=== PATIENT | female | born 1990 | race Caucasian/White ===

== ENCOUNTER 2019-09-05 23:22 | Inpatient (IN) | payer OTHER ==
[~2019-09-05] VITALS: Ht 160 cm; Wt 70.5 kg
[2019-09-05] MEDS: PLEASE ENTER ALLERGIES MC SCH (07:45)
[2019-09-05] MEDS ORDERED: NEWBORN KIT ONE (23:26)
[2019-09-05] MEDS ORDERED: MISOPROSTOL 200 MCG TABLET ONE (23:26)
[2019-09-05] MEDS ORDERED: LIDOCAINE 1%, 20ML ONE (23:26)
[2019-09-05] MEDS ORDERED: OXYTOCIN 30U/ 0.9% NaCL 500ML 0 ML ONE (23:27)
[2019-09-05] MEDS ORDERED: LACTATED RINGERS 1,000 ML IV SCH (23:28)
[2019-09-05] MEDS ORDERED: D5%-LACTATED RINGERS 1,000 ML IV SCH (23:28)
[2019-09-05] MEDS ORDERED: OXYTOCIN 30U/ 0.9% NaCL 500ML 500 ML IV ONE (23:28)
[2019-09-05] MEDS ORDERED: FENTANYL PF 100 MCG/2ML IV PRN (23:30)
[2019-09-05] MEDS ORDERED: TERBUTALINE 1 MG/ML, 1ML IVPush PRN (23:30)
[2019-09-05] MEDS ORDERED: TERBUTALINE 1 MG/ML, 1ML SQ PRN (23:30)
[2019-09-05] MEDS ORDERED: CALCIUM CARBONATE 500 MG TAB.CHEW PO PRN (23:30)
[2019-09-05] MEDS ORDERED: FENTANYL PF 100 MCG/2ML IVPush PRN (23:30)
[2019-09-05] MEDS ORDERED: ONDANSETRON 2MG/ML, 2ML IVPush PRN (23:30)
[2019-09-05] MEDS ORDERED: OXYTOCIN 10 UNITS/ML, 1ML ONE (23:32)
[2019-09-06] MEDS ORDERED: OXYTOCIN 30U/ 0.9% NaCL 500ML 500 ML IV SCH (00:05)
[2019-09-06] MEDS ORDERED: OXYcodone/APAP 5/325MG TABLET PO PRN ×2 (00:30)
[2019-09-06] MEDS ORDERED: ACETAMINOPHEN 325 MG TABLET PO PRN (00:30)
[2019-09-06] MEDS ORDERED: MISOPROSTOL 200 MCG TABLET PR PRN (00:30)
[2019-09-06] MEDS ORDERED: SIMETHICONE 80 MG CHEW TAB PO PRN (00:30)
[2019-09-06] MEDS ORDERED: CARBOPROST TROMETHAMINE 250 MCG/ML, 1ML IM PRN (00:30)
[2019-09-06] MEDS ORDERED: DIPH,PERTUSS(ACELL),TET VAC/PF NC IM-VACC PRN (00:30)
[2019-09-06] MEDS ORDERED: METHYLERGONOVINE 0.2 MG/ML IM PRN (00:30)
[2019-09-06 01:11] LABS: MEAN CORPUSCULAR HEMOGLOBIN 29.6 pg (27.0-34.8); MEAN CORPUSCULAR HGB CONC 33.7 g/dL (32.4-35.8); MEAN PLATELET VOLUME 9.3 fL (7.4-10.4); PLATELET COUNT 281 x10^3/uL (130-400); RED BLOOD COUNT 4.46 x10^6/uL (3.82-5.3); RED CELL DISTRIBUTION WIDTH 14.2 % (9.6-15.2)
[2019-09-06] MEDS ORDERED: IBUPROFEN 600 MG TABLET ONE (01:18)
[2019-09-06] MEDS: IBUPROFEN 600 MG TABLET PO PRN ×3 (01:21→18:04)
[2019-09-06 01:23] LABS: BASOPHILS # (AUTO) 0.01 x10^3/uL (0-0.1); BASOPHILS % (AUTO) 0 % (0-1); EOSINOPHILS % (AUTO) 0 % (1-7); LYMPHOCYTES # (AUTO) 0.75 x10^3/uL (1-3.4); LYMPHOCYTES % (AUTO) 4 % (22-44); MD SCAN; MONOCYTES # (AUTO) 0.43 x10^3/uL (0.2-0.8); MONOCYTES % (AUTO) 2 % (2-9); NEUTROPHILS # (AUTO) 18.91 x10^3/uL (1.8-6.8); NEUTROPHILS % (AUTO) 94 % (42-75)
[2019-09-06 02:45] VITALS: BP 116/73
[2019-09-06 05:30] VITALS: BP 108/63
[2019-09-06 07:30] VITALS: BP 101/61
[2019-09-06] MEDS: PLEASE ENTER ALLERGIES MC SCH ×3 (07:45→23:45)
[2019-09-06] MEDS: PRENATAL VIT/IRON/FA 1 EACH TABLET PO SCH (08:17)
[2019-09-06] MEDS: DOCUSATE 100 MG CAPSULE PO PRN ×2 (08:17→20:46)
[2019-09-06 08:54] LABS: MEAN CORPUSCULAR HEMOGLOBIN 30.3 pg (27.0-34.8); MEAN CORPUSCULAR HGB CONC 33.7 g/dL (32.4-35.8); MEAN CORPUSCULAR VOLUME 89.8 fL (80-100); MEAN PLATELET VOLUME 9.4 fL (7.4-10.4); PLATELET COUNT 290 x10^3/uL (130-400); RED BLOOD COUNT 4.27 x10^6/uL (3.82-5.3); RED CELL DISTRIBUTION WIDTH 14.1 % (9.6-15.2)
[2019-09-06 09:11] LABS: BASOPHILS # (AUTO) 0.08 x10^3/uL (0-0.1); BASOPHILS % (AUTO) 1 % (0-1); EOSINOPHILS # (AUTO) 0.01 x10^3/uL (0-0.4); EOSINOPHILS % (AUTO) 0 % (1-7); LYMPHOCYTES # (AUTO) 1.95 x10^3/uL (1-3.4); LYMPHOCYTES % (AUTO) 11 % (22-44); MD SCAN; MONOCYTES % (AUTO) 8 % (2-9); NEUTROPHILS # (AUTO) 14.33 x10^3/uL (1.8-6.8); NEUTROPHILS % (AUTO) 81 % (42-75)
[2019-09-06 14:00] VITALS: BP 108/68
[2019-09-06 19:20] VITALS: BP 119/71
[2019-09-07] MEDS: IBUPROFEN 600 MG TABLET PO PRN ×2 (00:03→05:26)
[2019-09-07] MEDS: PLEASE ENTER ALLERGIES MC SCH (07:45)
[2019-09-07 07:50] VITALS: BP 105/65
[2019-09-07] MEDS: PRENATAL VIT/IRON/FA 1 EACH TABLET PO SCH (09:00)
[2019-09-07] MEDS ORDERED: IBUP-1223 PO (10:12)
== END 2019-09-07 11:30 | disposition home or self-care (01) | DRG 807 ==
LOC: LDOP 23:22 → LDIP 23:29 → 2NW 09-06 02:15
PROVIDERS: ADMIT Obstetrics & Gynecology; ATTEND Obstetrics & Gynecology
PROC: 10E0XZZ Delivery of Products of Conception, External Approach (ICD-10-PCS; principal; 2019-09-06)
PROC: 0KQM0ZZ Repair Perineum Muscle, Open Approach (ICD-10-PCS; 2019-09-06)
DX: O62.3 Precipitate labor (principal); Z37.0 Single live birth; O70.1 Second degree perineal laceration during delivery; Z3A.38 38 weeks gestation of pregnancy
CPT/HCPCS: 36415; 85025; 86592; 86850; 86900; 90715; G0378